=== PATIENT | male | born 1935 | race Caucasian/White ===

== ENCOUNTER 2019-03-04 16:09 | Emergency (ER) | payer MEDICARE, OTHER | END 2019-03-04 16:54 | disposition home or self-care (01) | LOC: ER FS 16:09 ==

== ENCOUNTER 2019-08-19 19:28 | Emergency (ER) | payer MEDICARE, OTHER ==
[~2019-08-19] VITALS: Ht 180.3 cm; Wt 101.4 kg
[~2019-08-19 19:28] MED LIST: ASCO500C14; CHOL10003; CYCL10TA9 PO; DICL75TA2; FOLI1TAB7; LISI1TAB10
[2019-08-19] MEDS ORDERED: predniSONE 20 MG TAB PO ONE (20:00)
[2019-08-19] MEDS ORDERED: RT-ALBUTEROL/IPRATROPIUM 3 ML (DUONEB) VIAL INH ONE (20:00)
--- NOTE | 2019-08-19 20:05 | ED Respiratory ---
General Chief Complaint: Respiratory Problems Stated Complaint: CONGESTION,CHEST TIGHTNESS Source: patient, family Exam Limitations: no limitations History of Present Illness Date Seen by Provider: Aug 19, 2019 Time Seen by Provider: 20:01 Initial Comments Patient presents with chest tightness and cough. History of present illness, isrrael alfredo had diagnosis of the flu 5 days ago and was given Tamiflu. Has had a cough and chest congestion which was worse yesterday and then today began have more chest tightness and noisy breathing. Moderate head congestion and postnasal drainage. Denies abdominal pain, nausea or vomiting. Allergies and Home Medications Allergies Coded Allergies: No Known Allergies (Verified Allergy, Unknown, 03/16/06) Home Medications Albuterol Sulfate 2.5 Mg/3 Ml Vial.neb, 2.5 MG INH Q4H PRN for WHEEZING Prescribed by: VAISHALI ROLON on 08/19/192052 Cyclobenzaprine HCl 10 Mg Tablet, 10 MG PO HS Prescribed by: VAISHALI ROLON on 03/04/191642 Prednisone 20 Mg Tab, 40 MG PO DAILY Prescribed by: VAISHALI ROLON on 08/19/192052 Patient Home Medication List Home Medication List Reviewed: Yes Review of Systems Review of Systems Constitutional: see HPI; No chills, No dizziness, No fever; malaise; No we akness Respiratory: cough, phlegm, short of breath, wheezing Cardiovascular: No chest pain, No palpitations, No syncope Gastrointestinal: see HPI Past Nojntvx-Nlkvab-Ldebir Hx Past Med/Social Hx: Reviewed Nursing Past Med/Soc Hx Patient Social History 2nd Hand Smoke Exposure: No Recent Foreign Travel: No Contact w/Someone Who Travel: No Recent Hopitalizations: No Past Medical History Surgeries: Yes (RECTAL FISSURE) Coronary Stent, Gallbladder, Orthopedic Respiratory: No Cardiac: Yes (stent placement ) High Cholesterol, Hypertension Neurological: No Reproductive Disorders: No Genitourinary: No Gastrointestinal: No Musculoskeletal: Yes (compression fracture) Arthritis Endocrine: Yes Diabetes, Non-Insulin dep HEENT: No Cancer: No Psychosocial: No Integumentary: No Blood Disorders: No Physical Exam Vital Signs - First Documented 08/19/19 19:59 Temp 36.5 Pulse 64 Resp 18 B/P (MAP) 158/63 (94) O2 Delivery Room Air O2 Flow Rate 2.00 Capillary Refill : Height: '" Weight: lbs. oz. kg; 30.00 BMI Method: General Appearance: WD/WN, no apparent distress HEENT: normal ENT inspection, TMs normal, pharynx normal Neck: non-tender, supple, normal inspection Respiratory: chest non-tender, no respiratory distress, no accessory muscle use, rhonchi, wheezing Cardiovascular: regular rate, rhythm, no JVD, no murmur Gastrointestinal: soft; No guarding, No rebound, No tenderness Extremities: non-tender, normal inspection, no pedal edema, no calf tenderness Neurologic/Psychiatric: alert, normal mood/affect, oriented x 3 Skin: normal color, warm/dry Progress/Results/Core Measures Suspected Sepsis SIRS Temperature: Pulse: Respiratory Rate: Blood Pressure / Mean: Results/Orders My Orders Orders - VAISHALI ROLON DO Chest Pa/Lat (2 View) (08/19/19 19:59) Albuterol/Ipra Inhalation Soln (Duoneb I (08/19/19 20:00) Svn Small Volume Nebulizer (08/19/19 19:59) Prednisone Tablet (Deltasone Tablet) (08/19/19 20:00) Medications Given in ED Current Medications Medications Dose Ordered Sig/Marilu Route Start Time Stop Time Status Last Admin Dose Admin Albuterol/ Ipratropium 3 ml ONCE ONCE INH 08/19/19 20:00 08/19/19 20:01 DC 08/19/19 20:11 3 ML Prednisone 40 mg ONCE ONCE PO 08/19/19 20:00 08/19/19 20:01 DC 08/19/19 20:11 40 MG Vital Signs/I&O 08/19/19 19:59 Temp 36.5 Pulse 64 Resp 18 B/P (MAP) 158/63 (94) O2 Delivery Room Air O2 Flow Rate 2.00 Capillary Refill : Progress Note : Progress Note Patient felt significant better after DuoNeb treatment. Oxygen saturations 92- 93 percent on room air. Chest tightness resolved. Auscultation, still does have some scattered expiratory rhonchi without rales and no respiratory distress. Patient well-appearing. Discussed treatment for the next several days, daily prednisone burst 40 mg 5 days and albuterol neb every 4 hours as needed. Departure Impression Primary Impression: Influenza Additional Impression: Bronchitis Disposition: HOME, SELF-CARE Condition: Improved Departure-Patient Inst. Decision time for Depature: 20:53 Referrals: [facility]RE[facility] MD (PCP/Family) Primary Care Physician Patient Instructions: Flu, Adult (DC), Acute Bronchitis, Adult (DC) Scripts Prednisone (Prednisone) 20 Mg Tab 40 MG PO DAILY, #10 TAB 0 Refills Prov: VAISHALI ROLON DO 08/19/19 Albuterol Sulfate (Albuterol Sulfate) 2.5 Mg/3 Ml Vial.neb 2.5 MG INH Q4H PRN for WHEEZING, #50 EA 1 Refill Prov: VAISHALI ROLON DO 08/19/19 VAISHALI ROLON DO Aug 19, 2019 20:05
--- NOTE | 2019-08-19 20:16 | Diagnostic Imaging Report ---
INDICATION: Patient was seen in urgent care on Thursday and was diagnosed with flu. Tonight the patient has shortness of breath and is having chest tightness. FINDINGS: Frontal and lateral views of the chest demonstrate lungs to be clear. The heart, mediastinum and pulmonary vascularity are normal. IMPRESSION: Normal chest. Dictated by: Dictated on workstation # [id number]
[2019-08-19] MEDS ORDERED: ALBU2.5V4 INH (20:53)
[2019-08-19] MEDS ORDERED: PRD20T PO (20:53)
[2019-08-19 21:00] VITALS: BP 158/63
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
== END 2019-08-19 21:00 | disposition home or self-care (01) ==
LOC: EDUNIT# 19:28 → ER FS 19:30
DX: J11.1 Influenza due to unidentified influenza virus with other respiratory manifestations (principal); J20.9 Acute bronchitis, unspecified; Z95.5 Presence of coronary angioplasty implant and graft
CPT/HCPCS: 71046

== ENCOUNTER 2019-10-20 16:22 | Emergency (ER) | payer MEDICARE, OTHER ==
[~2019-10-20 16:22] MED LIST changes: +ALBU2.5V4 INH; +PRD20T PO
--- NOTE | 2019-10-20 16:43 | ED EENT ---
History of Present Illness General Chief Complaint: Oral/Throat Problems Stated Complaint: LUMP IN THROAT,UNABLE TO SWALLOW Source: patient Exam Limitations: no limitations History of Present Illness Date Seen by Provider: October 20, 2019 Time Seen by Provider: 16:38 Initial Comments 84-year-old male feels like he has a swelling at that back of his throat. 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 He feels like is just swollen. Reports that he had a some carrots and strength some coffee. That is not down in his esophagus bit more right at the back of his throat at the base of his tongue. Patient feels like it just cannot came on. Patient does report he's been having issues with some seasonal allergies. Patient reports that he clears his throat a lot. He is not having difficulty breathing. He is able to swallow fluids without difficulty just feels like there is a lump there. Allergies and Home Medications Allergies Coded Allergies: No Known Allergies (Verified Allergy, Unknown, 03/16/06) Home Medications Albuterol Sulfate 2.5 Mg/3 Ml Vial.neb, 2.5 MG INH Q4H PRN for WHEEZING Prescribed by: VAISHALI ROLON on 08/19/192052 Cyclobenzaprine HCl 10 Mg Tablet, 10 MG PO HS Prescribed by: VAISHALI ROLON on 03/04/191642 Prednisone 20 Mg Tab, 40 MG PO DAILY Prescribed by: VAISHALI ROLON on 08/19/192052 Patient Home Medication List Home Medication List Reviewed: Yes Review of Systems Review of Systems Constitutional: No chills, No fever Eyes: No Symptoms Reported Ears: Other (chronic ear issues ) Nose: no symptoms reported Mouth: see HPI Throat: see HPI Respiratory: no symptoms reported Cardiovascular: no symptoms reported Gastrointestinal: no symptoms reported Skin: no symptoms reported Neurological: No Symptoms Reported Past Whtgltk-Xrhvut-Tceorn Hx Past Med/Social Hx: Reviewed Nursing Past Med/Soc Hx Patient Social History 2nd Hand Smoke Exposure: No Recent Foreign Travel: No Contact w/Someone Who Travel: No Recent Hopitalizations: No Past Medical History Surgeries: Yes (RECTAL FISSURE) Coronary Stent, Gallbladder, Orthopedic Respiratory: No Cardiac: Yes (stent placement ) High Cholesterol, Hypertension Neurological: No Reproductive Disorders: No Genitourinary: No Gastrointestinal: No Musculoskeletal: Yes (compression fracture) Arthritis Endocrine: Yes Diabetes, Non-Insulin dep HEENT: No Cancer: No Psychosocial: No Integumentary: No Blood Disorders: No Physical Exam Vital Signs Vital Signs - First Documented 10/20/19 16:39 Temp 37.3 Pulse 76 Resp 16 B/P (MAP) 154/83 (106) Pulse Ox 100 Height, Weight, BMI Height: '" Weight: lbs. oz. kg; 31.00 BMI Method: General Appearance: WD/WN Eyes: bilateral eye normal inspection Ears: bilateral ear other (no acute changes ) Nose: normal inspection Mouth/Throat: pharynx normal; No excessive drooling, No foreign body, No pharynx swelling, No pharynx tenderness, No tongue swollen, No tonsillar exudate; other (uvula mild erythema, mild enlargement ) Neck: non-tender, full range of motion Cardiovascular: normal peripheral pulses, regular rate, rhythm Respiratory: chest non-tender, lungs clear, normal breath sounds Gastrointestinal: non tender, soft Neurologic/Psychiatric: gold leaf gilder II-XII nml as tested, no motor/sensory deficits, alert, normal mood/affect, oriented x 3 Skin: normal color, warm/dry Progress/Results/Core Measures Results/Orders Lab Results Laboratory Tests Test 10/20/19 17:12 Range/Units White Blood Count 5.9 4.3-11.0 10^3/uL Red Blood Count 3.82 L 4.35-5.85 10^6/uL Hemoglobin 12.1 L 13.3-17.7 G/DL Hematocrit 35 L 40-54 % Mean Corpuscular Volume 91 80-99 FL Mean Corpuscular Hemoglobin 32 25-34 PG Mean Corpuscular Hemoglobin Concent 35 32-36 G/DL Red Cell Distribution Width 12.7 10.0-14.5 % Platelet Count 131 130-400 10^3/uL Mean Platelet Volume 9.8 7.4-10.4 FL Sodium Level 141 135-145 MMOL/L Potassium Level 4.4 3.6-5.0 MMOL/L Chloride Level 101 98-107 MMOL/L Carbon Dioxide Level 24 21-32 MMOL/L Anion Gap 16 H 5-14 MMOL/L Blood Urea Nitrogen 24 H 7-18 MG/DL Creatinine 1.28 0.60-1.30 MG/DL Estimat Glomerular Filtration Rate 53 BUN/Creatinine Ratio 19 Glucose Level 133 H 70-105 MG/DL Calcium Level 9.6 8.5-10.1 MG/DL Corrected Calcium 9.3 8.5-10.1 MG/DL Total Bilirubin 0.6 0.1-1.0 MG/DL Aspartate Amino Transf (AST/SGOT) 22 5-34 U/L Alanine Aminotransferase (ALT/SGPT) 23 0-55 U/L Alkaline Phosphatase 76 40-136 U/L C-Reactive Protein 0.32 <0.50 MG/DL Total Protein 6.7 6.4-8.2 GM/DL Albumin 4.4 3.2-4.5 GM/DL My Orders Orders - JESSICA JUARES DO Diphenhydramine Injection (Benadryl Inje (10/20/19 16:45) Soft Tissue Neck (10/20/19 16:55) Cbc No Diff (10/20/19 16:55) Comprehensive Metabolic Panel (10/20/19 16:55) Thyroid Stimulating Hormone (10/20/19 16:55) Crp Fs (10/20/19 16:55) Medications Given in ED Current Medications Medications Dose Ordered Sig/Marilu Route Start Time Stop Time Status Last Admin Dose Admin Diphenhydramine HCl 50 mg ONCE ONCE IM 10/20/19 16:45 10/20/19 16:47 DC 10/20/19 16:56 50 MG Vital Signs/I&O 10/20/19 16:39 Temp 37.3 Pulse 76 Resp 16 B/P (MAP) 154/83 (106) Pulse Ox 100 Progress Progress Note : Time: 17:49 Progress Note Patient with no significant findings on imaging or labs. Patient with a globus sensation. I suspect that this is from allergic rhinitis. We will have him trial Flonase 1 week. His symptoms remained I recommend he follow up with his primary care provider for further evaluation and possible CT. Patient is stable will be discharged home Diagnostic Imaging Diagonstic Imaging: Xray Plain Films/CT/US/NM/MRI: facial bones Comments [facility]. [place], [place] NAME: DA MCINTYRE [facility] REC#: [id number] PT STATUS: REG ER : 1935 PHYSICIAN: JESSICA JUARES DO ADMIT DATE: 10/20/19/ER FS Draft Date of Exam:10/20/19 SOFT TISSUE NECK HISTORY: Swelling in throat. Difficulty swallowing for a few hours. Sore throat. COMPARISON: None. FINDINGS: Two views of the soft tissues of the neck are performed. The epiglottis appears normal in size. The airway is patent. Prevertebral soft tissues are unremarkable. No radiopaque foreign body is seen. Multilevel degenerative changes are seen throughout the cervical spine, with interbody osseous fusion. IMPRESSION: 1. The airway is patent. No acute soft tissue abnormality is seen. 2. 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 Referrals: [facility] MD (PCP/Family) Primary Care Physician Patient Instructions: Seasonal Allergies (DC) Add. Discharge Instructions: Use Flonase twice a day as directed on package any snare. Follow-up with your primary care provider in approximately 5-7 days for continuation of care and recheck in today symptoms Return to the ER as needed Emergency department focuses on treating and ruling out life-threatening diseases. Whenever possible, a diagnosis is given. However, most patients are given an impression based on their history, physical exam, and workup during your brief time in the ER. Information about probable diagnosis and other educational material has been provided. Please take the time to read and understand this information. It is very important that you follow up with a physician as discussed during the visit today. Failure to adhere to your follow-up instructions may lead to severe disability, injury, or so please make sure to keep your appointments or obtain one as requested. Please keep in mind the emergency department is not designed to your primary care or "family doctor" and nonurgent issues are best evaluated by an outpatient physician All discharge instructions reviewed with patient and/or family. Voiced understanding. JESSICA JUARES DO October 20, 2019 16:43
[2019-10-20] MEDS ORDERED: diphenhydrAMINE 50 MG/ML INJ (BENADRYL) IM ONE (16:45)
--- NOTE | 2019-10-20 17:18 | Diagnostic Imaging Report ---
HISTORY: Swelling in throat. Difficulty swallowing for a few hours. Sore throat. COMPARISON: None. FINDINGS: Two views of the soft tissues of the neck are performed. The epiglottis appears normal in size. The airway is patent. Prevertebral soft tissues are unremarkable. No radiopaque foreign body is seen. Multilevel degenerative changes are seen throughout the cervical spine, with interbody osseous fusion. IMPRESSION: 1. The airway is patent. No acute soft tissue abnormality is seen. 2. 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 Dictated by: Dictated on workstation # [id number]
[2019-10-20 17:26] LABS: HEMOGLOBIN 12.1 G/DL (13.3-17.7); WHITE BLOOD COUNT 5.9 10^3/uL (4.3-11.0)
[2019-10-20 17:27] LABS: MEAN PLATELET VOLUME 9.8 FL (7.4-10.4); RED CELL DISTRIBUTION WIDTH 12.7 % (10.0-14.5)
[2019-10-20 17:43] LABS: BILIRUBIN,TOTAL 0.6 MG/DL (0.1-1.0); CALCIUM 9.6 MG/DL (8.5-10.1); CREATININE SERUM 1.28 MG/DL (0.60-1.30); POTASSIUM 4.4 MMOL/L (3.6-5.0); TOTAL PROTEIN 6.7 GM/DL (6.4-8.2)
[2019-10-20 17:44] LABS: ALBUMIN 4.4 GM/DL (3.2-4.5)
[2019-10-20 17:59] VITALS: BP 150/80
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
== END 2019-10-20 17:59 | disposition home or self-care (01) ==
LOC: EDUNIT# 16:22 → ER FS 16:24
DX: J30.9 Allergic rhinitis, unspecified (principal); R09.89 Other specified symptoms and signs involving the circulatory and respiratory systems; E11.9 Type 2 diabetes mellitus without complications; Z79.52 Long term (current) use of systemic steroids; Z95.5 Presence of coronary angioplasty implant and graft
CPT/HCPCS: 36415; 70360; 80053; 84443; 85027; 86141; 96372

== ENCOUNTER 2020-06-26 18:46 | Emergency (ER) | payer MEDICARE, OTHER ==
[~2020-06-26] VITALS: Ht 180.3 cm; Wt 100.0 kg
--- NOTE | 2020-06-26 18:56 | ED Fall/Injury ---
General Stated Complaint: FALL,NOSE/MOUTH LAC,HIT HEAD History of Present Illness Date Seen by Provider: Jun 26, 2020 Time Seen by Provider: 18:53 Initial Comments 84-year-old male presents following a fall. Patient stepped back off a truck and there was nothing the stent back to. He fell approximately 3-4 foot. He did hit his face. He has a small laceration inside his lip, swollen bloody nose. Kiet clara on his forehead. He is on a blood thinner. He denies any loss of consciousness. The accident happened about an hour prior to arrival. He denies any other injury or pain. He doesn't have any nausea or vomiting. Allergies and Home Medications Allergies Coded Allergies: No Known Allergies (Verified Allergy, Unknown, 03/16/06) Home Medications Albuterol Sulfate 2.5 Mg/3 Ml Vial.neb, 2.5 MG INH Q4H PRN for WHEEZING Prescribed by: VAISHALI ROLON on 08/19/192052 Cyclobenzaprine HCl 10 Mg Tablet, 10 MG PO HS Prescribed by: VAISHALI ROLON on 03/04/191642 Prednisone 20 Mg Tab, 40 MG PO DAILY Prescribed by: VAISHALI ROLON on 08/19/192052 Patient Home Medication List Home Medication List Reviewed: Yes Review of Systems Review of Systems Constitutional: No chills, No fever Eyes: Denies Blurred Vision Respiratory: No cough, No short of breath Cardiovascular: No chest pain, No palpitations Gastrointestinal: No abdominal pain, No nausea, No vomiting Genitourinary: no symptoms reported Musculoskeletal: no symptoms reported Skin: see HPI Psychiatric/Neurological: No Symptoms Reported Past Azwzyht-Rqtxaj-Fmmwux Hx Past Med/Social Hx: Reviewed Nursing Past Med/Soc Hx Patient Social History 2nd Hand Smoke Exposure: No Recent Hopitalizations: No Past Medical History Surgeries: Yes (RECTAL FISSURE) Coronary Stent, Gallbladder, Orthopedic Respiratory: No Cardiac: Yes (stent placement ) High Cholesterol, Hypertension Neurological: No Reproductive Disorders: No Genitourinary: No Gastrointestinal: No Musculoskeletal: Yes (compression fracture) Arthritis Endocrine: Yes Diabetes, Non-Insulin dep HEENT: No Cancer: No Psychosocial: No Integumentary: No Blood Disorders: No Physical Exam Vital Signs Vital Signs - First Documented 06/26/20 19:03 Temp 36.1 Pulse 70 Resp 16 B/P (MAP) 188/80 (116) Pulse Ox 97 Capillary Refill : Height, Weight, BMI Height: '" Weight: lbs. oz. kg; 31.00 BMI Method: General Appearance: mild distress HEENT: PERRL/EOMI, other (small laceration inside of the left upper lip, small abrasion/laceration nonsuturable over the bridge of the nose, swelling of bilateral nose with blood tinge at the nares) Neck: full range of motion, supple Respiratory: lungs clear, normal breath sounds, no respiratory distress Gastrointestinal: non tender, soft Extremities: normal range of motion, non-tender Neurologic/Psychiatric: alert, normal mood/affect, oriented x 3 Skin: other (abrasion frontal scalp) Progress/Results/Core Measures Results/Orders My Orders Orders - JESSICA JUARES DO Ct Head/Maxillofacial Wo (06/26/20 18:56) Vital Signs/I&O 06/26/20 19:03 Temp 36.1 Pulse 70 Resp 16 B/P (MAP) 188/80 (116) Pulse Ox 97 Progress Progress Note : Time: 19:54 Progress Note [facility], [place] NAME: DA [facility] REC#: [id number] PT STATUS: REG ER : 1935 PHYSICIAN: JESSICA JUARES DO ADMIT DATE: 06/26/20/ER FS Draft Date of Exam:06/26/20 CT HEAD/MAXILLOFACIAL WO PROCEDURE: CT head and maxillofacial without contrast. TECHNIQUE: Multiple contiguous axial images were obtained through the head and facial bones without the use of intravenous contrast. Auto Exposure Controls were utilized during the CT exam to meet ALARA standards for radiation dose reduction. INDICATION: Status post fall, trauma hit head. CORRELATION STUDY: None FINDINGS: CT HEAD: There are generalized atrophic changes with prominence of the ventricles and sulci. There are rather prominent scattered areas of decreased attenuation likely reflecting small vessel ischemic disease. No midline shift or mass effect. No intracranial hemorrhage. Intracranial vascular calcification is present. CT MAXILLOFACIAL: There is asymmetric soft tissue edema over the medial right periorbital region. Bilateral nasal bone deformities favor probable more remote injury. Minimal leftward nasal septal deviation. Orbital stephenson including floor are maintained. Mandible appearing intact. Zygomatic arch and pterygoid plates preserved. Trace mucosal thickening along the floor of the maxillary sinuses. Bilateral lens replacements. IMPRESSION: CT HEAD: 1. Negative for acute traumatic intracranial abnormality. CT MAXILLOFACIAL: 1. Negative for acute displaced maxillofacial fracture. 2. Right periorbital soft tissue swelling. Departure Impression Primary Impression: Laceration of lip without complication Qualified Codes: S01.511A - Laceration without foreign body of lip, initial encounter Additional Impressions: Fall Qualified Codes: W19.XXXA - Unspecified fall, initial encounter Facial contusion Qualified Codes: S00.83XA - Contusion of other part of head, initial encounter Abrasion of face Qualified Codes: S00.81XA - Abrasion of other part of head, initial encounter Disposition: 01 HOME, SELF-CARE Condition: Stable Departure-Patient Inst. Referrals: EVAN STRE[facility] MD (PCP/Family) Primary Care Physician Patient Instructions: Mouth and Dental Injuries in Adults, Taking Care of Cuts and Scrapes, Minor Head Injury Add. Discharge Instructions: Tylenol or ibuprofen as needed Ice to affected area as needed Clean face with warm soapy water you may use a thin layer of Vaseline over your abrasions Follow-up with your primary care provider as needed JESSICA JUARES DO Jun 26, 2020 18:56
--- NOTE | 2020-06-26 19:41 | Diagnostic Imaging Report ---
PROCEDURE: CT head and maxillofacial without contrast. TECHNIQUE: Multiple contiguous axial images were obtained through the head and facial bones without the use of intravenous contrast. Auto Exposure Controls were utilized during the CT exam to meet ALARA standards for radiation dose reduction. INDICATION: Status post fall, trauma hit head. CORRELATION STUDY: None FINDINGS: CT HEAD: There are generalized atrophic changes with prominence of the ventricles and sulci. There are rather prominent scattered areas of decreased attenuation likely reflecting small vessel ischemic disease. No midline shift or mass effect. No intracranial hemorrhage. Intracranial vascular calcification is present. CT MAXILLOFACIAL: There is asymmetric soft tissue edema over the medial right periorbital region. Bilateral nasal bone deformities favor probable more remote injury. Minimal leftward nasal septal deviation. Orbital stephenson including floor are maintained. Mandible appearing intact. Zygomatic arch and pterygoid plates preserved. Trace mucosal thickening along the floor of the maxillary sinuses. Bilateral lens replacements. IMPRESSION: CT HEAD: 1. Negative for acute traumatic intracranial abnormality. CT MAXILLOFACIAL: 1. Negative for acute displaced maxillofacial fracture. 2. Right periorbital soft tissue swelling. Dictated by: Dictated on workstation # [id number]
[2020-06-26 20:00] VITALS: BP 188/80
== END 2020-06-26 20:00 | disposition home or self-care (01) ==
LOC: EDUNIT# 18:46 → ER FS 18:48
DX: S01.511A Laceration without foreign body of lip, initial encounter (principal); I10 Essential (primary) hypertension; Z95.5 Presence of coronary angioplasty implant and graft; Z87.81 Personal history of (healed) traumatic fracture; Z79.52 Long term (current) use of systemic steroids; W17.89XA Other fall from one level to another, initial encounter
CPT/HCPCS: 70450; 70486

== ENCOUNTER 2020-06-28 05:18 | Emergency (ER) | payer MEDICARE, OTHER ==
[~2020-06-28] VITALS: Ht 180.4 cm; Wt 101.2 kg
[2020-06-28 05:29] VITALS: BP 154/67
[2020-06-28] MEDS ORDERED: ACHD5005 PO (05:43)
--- NOTE | 2020-06-28 05:45 | ED Upper Extremity ---
General Chief Complaint: Upper Extremity Stated Complaint: RIGHT WRIST PAIN Nursing Triage Note: pt fell 2 days ago and now has right wrist pain, mild swelling, pt did not take amything for pain Nursing Sepsis Screen: No Definite Risk Source: patient Exam Limitations: no limitations History of Present Illness Date Seen by Provider: Jun 28, 2020 Time Seen by Provider: 05:30 Initial Comments 84 y/o male presents w R wrist pain for a couple days. Seen in this ER 2 days ago after a fall....had a head CT, but did not have c/o wrist pain at that time. This morning w moderate pain w movement and decided to come to the ER. Has not taken any pain medication of ibuprofen, but states he did yesterday w some relief. Allergies and Home Medications Allergies Coded Allergies: No Known Allergies (Verified Allergy, Unknown, 03/16/06) Home Medications Albuterol Sulfate 2.5 Mg/3 Ml Vial.neb, 2.5 MG INH Q4H PRN for WHEEZING Prescribed by: VAISHALI ROLON on 08/19/192052 Cyclobenzaprine HCl 10 Mg Tablet, 10 MG PO HS Prescribed by: VAISHALI ROLON on 03/04/19 164 Hydrocodone/Acetaminophen 1 Each Tablet, 1 EACH PO Q4H Prescribed by: VAISHALI ROLON on 06/28/20 0545 Ibuprofen 800 Mg Tablet, 800 MG PO Q8H PRN for PAIN Prescribed by: VAISHALI ROLON on 06/28/20 0547 Prednisone 20 Mg Tab, 40 MG PO DAILY Prescribed by: VAISHALI ROLON on 08/19/192052 Patient Home Medication List Home Medication List Reviewed: Yes Review of Systems Constitutional: no symptoms reported; No chills, No dizziness, No malaise, No weakness EENTM: no symptoms reported Respiratory: no symptoms reported Cardiovascular: no symptoms reported Gastrointestinal: no symptoms reported Musculoskeletal: see HPI, joint pain (R wrist), joint swelling; No neck pain Skin: No change in color, No lesions, No lumps, No rash Past Denhsiw-Ukqwjo-Cqwqax Hx Past Med/Social Hx: Reviewed Nursing Past Med/Soc Hx Patient Social History Alcohol Use: Denies Use Smoking Status: Never a Smoker 2nd Hand Smoke Exposure: No Recent Infectious Disease Expo: No Recent Hopitalizations: No Past Medical History Surgeries: Yes (RECTAL FISSURE) Coronary Stent, Gallbladder, Orthopedic Respiratory: No Cardiac: Yes (stent placement ) High Cholesterol, Hypertension Neurological: No Reproductive Disorders: No Genitourinary: No Gastrointestinal: No Musculoskeletal: Yes (compression fracture) Arthritis Endocrine: Yes Diabetes, Non-Insulin dep HEENT: No Cancer: No Psychosocial: No Integumentary: No Blood Disorders: No Physical Exam Vital Signs Vital Signs - First Documented 06/28/20 05:29 Temp 36.7 Pulse 82 Resp 16 B/P (MAP) 154/67 (96) Pulse Ox 96 O2 Delivery Room Air Capillary Refill : Less Than 3 Seconds Height, Weight, BMI Height: '" Weight: lbs. oz. kg; 31.00 BMI Method: General Appearance: WD/WN, no apparent distress Elbow/Forearm: normal inspection, non-tender, no evidence of injury, normal ROM, Right Wrist: Yes normal inspection, Yes no evidence of injury, Yes bone tenderness (diffuse- carpal bones and distal wrist), Yes limited ROM (2 to pain), Yes pain, Yes soft tissue tenderness, Yes swelling Hand: normal inspection, non-tender, normal ROM, Right Neurologic/Tendon: normal sensation, normal motor functions, normal tendon functions Skin: normal color, warm/dry Progress/Results/Core Measures Results/Orders My Orders Orders - VAISHALI ROLON DO Wrist 3 View Right (06/28/20 05:23) Vital Signs/I&O 06/28/20 05:29 Temp 36.7 Pulse 82 Resp 16 B/P (MAP) 154/67 (96) Pulse Ox 96 O2 Delivery Room Air Blood Pressure Mean: 96 Departure Impression Primary Impression: Sprain of right wrist Qualified Codes: S63.501A - Unspecified sprain of right wrist, initial encounter Disposition: HOME, SELF-CARE Condition: Stable Departure-Patient Inst. Decision time for Depature: 05:45 Referrals: [facility] STRE[facility] MD (PCP/Family) Primary Care Physician Patient Instructions: Wrist Sprain ED Add. Discharge Instructions: Follow up with Dr Street in 1 week to recheck and maybe re-xray your right wrist if it is still hurting. All discharge instructions reviewed with patient and/or family. Voiced understanding. Scripts Ibuprofen (Ibuprofen) 800 Mg Tablet 800 MG PO Q8H PRN for PAIN, #30 TAB 0 Refills Prov: VAISHALI ROLON DO 06/28/20 Hydrocodone/Acetaminophen (Hydrocodone-Acetamin 5-325 mg) 1 Each Tablet 1 EACH PO Q4H for Abdominal Pain, #10 TAB Prov: VAISHALI ROLON DO 06/28/20 VAISHALI ROLON DO Jun 28, 2020 05:45
[2020-06-28] MEDS ORDERED: IBUP-1780 PO (05:47)
--- NOTE | 2020-06-28 08:14 | Diagnostic Imaging Report ---
EXAMINATION: Right wrist radiographs, 3 views. COMPARISON: None. HISTORY: 84-year-old male, fall. Right wrist pain. FINDINGS: There is chondrocalcinosis. There are vascular calcifications. There is mild arthritis at the triscaphe articulation. 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 There are subchondral cysts in the distal radius and the proximal scaphoid. There is no identified acute fracture. There is no identified abnormal bone alignment. There is no radiopaque foreign body. IMPRESSION: 1. No identified acute bony abnormality of the right wrist. 2. Degenerative changes as described above. Dictated by: Dictated on workstation # [id number]
== END 2020-06-28 05:48 | disposition home or self-care (01) ==
LOC: EDUNIT# 05:18 → ER FS 05:21
DX: S63.511A Sprain of carpal joint of right wrist, initial encounter (principal); Z95.5 Presence of coronary angioplasty implant and graft; Z79.52 Long term (current) use of systemic steroids; W19.XXXA Unspecified fall, initial encounter
CPT/HCPCS: 73110

== ENCOUNTER → 2020-07-24 | Outpatient (CLI) | payer MEDICARE, OTHER ==
[~2020-07-24] MED LIST changes: +ACHD5005 PO; +IBUP-1780 PO
[2020-07-24 13:50] LABS: BASOPHILS % (AUTO) 1 % (0-10); EOSINOPHILS % (AUTO) 9 % (0-10); HEMATOCRIT 31 % (40-54); HEMOGLOBIN 10.4 G/DL (13.3-17.7); LYMPHOCYTES % (AUTO) 11 % (12-44); MEAN CORPUSCULAR HEMOGLOBIN 31 PG (25-34); MEAN CORPUSCULAR HGB CONC 33 G/DL (32-36); MEAN CORPUSCULAR VOLUME 95 FL (80-99); MEAN PLATELET VOLUME 10.3 FL (7.4-10.4); MONOCYTES % (AUTO) 9 % (0-12); NEUTROPHILS % (AUTO) 70 % (42-75); PLATELET COUNT 153 10^3/uL (130-400); WHITE BLOOD COUNT 7.1 10^3/uL (4.3-11.0)
[2020-07-24 13:51] LABS: EOSINOPHILS # (AUTO) 0.7 10^3/uL (0.0-0.3); LYMPHOCYTES # (AUTO) 0.8 X 10^3 (1.0-4.0); MONOCYTES # (AUTO) 0.7 X 10^3 (0.0-1.0)
== END ==
LOC: IHC 12:57
PROVIDERS: ATTEND Family Medicine
DX: I12.9 Hypertensive chronic kidney disease with stage 1 through stage 4 chronic kidney disease, or unspecified chronic kidney disease (principal); N18.30 Chronic kidney disease, stage 3 unspecified; D63.1 Anemia in chronic kidney disease; Z79.2 Long term (current) use of antibiotics
CPT/HCPCS: 85025

== ENCOUNTER → 2020-07-25 | Outpatient (CLI) | payer MEDICARE, OTHER ==
[2020-07-25 16:23] LABS: POTASSIUM 4.4 MMOL/L (3.6-5.0)
[2020-07-25 16:24] LABS: ALBUMIN 3.7 GM/DL (3.2-4.5); BILIRUBIN,TOTAL 0.5 MG/DL (0.1-1.0); CALCIUM 9.4 MG/DL (8.5-10.1); CREATININE SERUM 1.31 MG/DL (0.60-1.30); TOTAL PROTEIN 6.6 GM/DL (6.4-8.2)
== END ==
LOC: LAB FS 15:18
PROVIDERS: ATTEND Family Medicine
DX: E11.22 Type 2 diabetes mellitus with diabetic chronic kidney disease (principal); I12.9 Hypertensive chronic kidney disease with stage 1 through stage 4 chronic kidney disease, or unspecified chronic kidney disease; N18.30 Chronic kidney disease, stage 3 unspecified
CPT/HCPCS: 36415; 80053

== ENCOUNTER → 2020-07-31 | Outpatient (CLI) | payer MEDICARE, OTHER ==
[2020-07-31 15:20] LABS: BASOPHILS % (AUTO) 1 % (0-10); EOSINOPHILS % (AUTO) 5 % (0-10); HEMATOCRIT 30 % (40-54); LYMPHOCYTES % (AUTO) 13 % (12-44); MEAN CORPUSCULAR HEMOGLOBIN 31 PG (25-34); MEAN CORPUSCULAR HGB CONC 34 G/DL (32-36); MEAN CORPUSCULAR VOLUME 93 FL (80-99); MEAN PLATELET VOLUME 9.4 FL (7.4-10.4); MONOCYTES % (AUTO) 10 % (0-12); NEUTROPHILS % (AUTO) 71 % (42-75); PLATELET COUNT 183 10^3/uL (130-400); WHITE BLOOD COUNT 5.6 10^3/uL (4.3-11.0)
[2020-07-31 15:21] LABS: BASOPHILS # (AUTO) 0.1 10^3/uL (0.0-0.1); EOSINOPHILS # (AUTO) 0.3 10^3/uL (0.0-0.3); LYMPHOCYTES # (AUTO) 0.7 X 10^3 (1.0-4.0); MONOCYTES # (AUTO) 0.5 X 10^3 (0.0-1.0)
[2020-07-31 15:29] LABS: ALANINE AMINOTRANSFERASE 15 U/L (0-55); ALBUMIN 3.6 GM/DL (3.2-4.5); ALKALINE PHOSPHATASE 91 U/L (40-136); BILIRUBIN,TOTAL 0.3 MG/DL (0.1-1.0); BUN/CREATININE RATIO 18; CARBON DIOXIDE 27 MMOL/L (21-32); CHLORIDE 104 MMOL/L (98-107); CREATININE SERUM 1.14 MG/DL (0.60-1.30); GFR ESTIMATED > 60; GLUCOSE 84 MG/DL (70-105); POTASSIUM 4.4 MMOL/L (3.6-5.0); SODIUM 140 MMOL/L (135-145); TOTAL PROTEIN 6.3 GM/DL (6.4-8.2)
[2020-07-31 22:21] LABS: CREATINE KINASE 40 U/L (30-200)
== END ==
LOC: IHC 14:39
PROVIDERS: ATTEND Internal Medicine Infectious Disease
DX: M00.9 Pyogenic arthritis, unspecified (principal); Z79.2 Long term (current) use of antibiotics
CPT/HCPCS: 80053; 82550; 85025

== ENCOUNTER → 2020-08-13 | Outpatient (CLI) | payer MEDICARE, OTHER ==
[2020-08-13 14:39] LABS: BASOPHILS % (AUTO) 1 % (0-10); EOSINOPHILS % (AUTO) 5 % (0-10); HEMATOCRIT 30 % (40-54); LYMPHOCYTES # (AUTO) 0.8 X 10^3 (1.0-4.0); LYMPHOCYTES % (AUTO) 15 % (12-44); MEAN CORPUSCULAR HEMOGLOBIN 30 PG (25-34); MEAN CORPUSCULAR HGB CONC 33 G/DL (32-36); MEAN CORPUSCULAR VOLUME 92 FL (80-99); MEAN PLATELET VOLUME 9.1 FL (7.4-10.4); MONOCYTES # (AUTO) 0.5 X 10^3 (0.0-1.0); MONOCYTES % (AUTO) 9 % (0-12); NEUTROPHILS # (AUTO) 3.6 X 10^3 (1.8-7.8); NEUTROPHILS % (AUTO) 70 % (42-75); PLATELET COUNT 199 10^3/uL (130-400); WHITE BLOOD COUNT 5.1 10^3/uL (4.3-11.0)
[2020-08-13 14:40] LABS: EOSINOPHILS # (AUTO) 0.3 10^3/uL (0.0-0.3)
[2020-08-13 14:50] LABS: CARBON DIOXIDE 26 MMOL/L (21-32); CHLORIDE 106 MMOL/L (98-107); POTASSIUM 4.6 MMOL/L (3.6-5.0); SODIUM 144 MMOL/L (135-145)
[2020-08-13 14:51] LABS: ALANINE AMINOTRANSFERASE 15 U/L (0-55); ALBUMIN 3.6 GM/DL (3.2-4.5); ALKALINE PHOSPHATASE 84 U/L (40-136); BILIRUBIN,TOTAL 0.3 MG/DL (0.1-1.0); BUN/CREATININE RATIO 18; CREATININE SERUM 1.08 MG/DL (0.60-1.30); GFR ESTIMATED > 60; GLUCOSE 127 MG/DL (70-105); TOTAL PROTEIN 6.6 GM/DL (6.4-8.2)
[2020-08-14 15:12] LABS: CREATINE KINASE 70 U/L (30-200)
== END ==
LOC: LAB FS 13:53
PROVIDERS: ATTEND Internal Medicine Infectious Disease
DX: Z45.2 Encounter for adjustment and management of vascular access device (principal); M00.9 Pyogenic arthritis, unspecified; Z79.2 Long term (current) use of antibiotics
CPT/HCPCS: 36415; 80053; 82550; 85025

== ENCOUNTER → 2020-08-15 | Outpatient (CLI) | payer MEDICARE, OTHER | LOC: LAB FS 11:07 | PROVIDERS: ATTEND Family Medicine | DX: Z79.2 Long term (current) use of antibiotics (principal) | CPT/HCPCS: 87040 ==

== ENCOUNTER → 2021-08-05 | Outpatient (CLI) | payer MEDICARE, OTHER ==
[~2021-08-05] MED LIST changes: +CYCL10TA25 PO; -CYCL10TA9 PO
--- NOTE | 2021-08-05 13:39 | Diagnostic Imaging Report ---
PROCEDURE: MR imaging cervical spine without contrast. TECHNIQUE: Multiplanar, multisequence MR imaging of the cervical spine was performed without contrast. INDICATION: Neck pain. Cervical spinal stenosis. COMPARISON: Neck soft tissue radiographs 10/20/2019. FINDINGS: Examination is mildly limited by motion. Normal alignment. Vertebral body heights are preserved. There is solid osseous fusion of C4 through C6. Bone marrow signal is otherwise unremarkable. No abnormal signal in the cervical spinal cord. Indeterminate T2 hyperintense mass posterior to the right distal common carotid artery measuring 1.1 x 0.7 x 3.7 cm. C2-C3: Annular disc bulging and ligamentous hypertrophy result in mild spinal canal and bilateral neuroforaminal narrowing. C3-C4: Broad-based disc bulge results in moderate spinal canal stenosis. Moderate bilateral neuroforaminal narrowing. C4-C5: No spinal canal or neuroforaminal narrowing. C5-C6: Osteophytic ridging results in mild left neuroforaminal narrowing. No spinal canal narrowing. C6-C7: Disc/osteophyte complex results in moderate left and mild right neuroforaminal narrowing. Mild spinal canal narrowing. C7-T1: Annular disc bulging results in mild spinal canal and bilateral lateral recess narrowing. IMPRESSION: 1. 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 2. 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 There is also moderate bilateral neuroforaminal narrowing at this level. 3. No abnormal signal in the cervical spinal cord. 4. Indeterminate T2 hyperintense mass posterior to the distal right common carotid artery measures up to 3.7 cm. This is poorly characterized on this nondedicated exam. Recommend correlation with history and clinical findings. This could be better evaluated with a contrast-enhanced CT of the neck. Dictated by: Dictated on workstation # [id number]
== END ==
LOC: RAD 10:15
PROVIDERS: ATTEND Family Medicine
DX: M48.02 Spinal stenosis, cervical region (principal); M47.812 Spondylosis without myelopathy or radiculopathy, cervical region; M89.8X8 Other specified disorders of bone, other site; Z98.1 Arthrodesis status
CPT/HCPCS: 72141

== ENCOUNTER → 2021-08-08 | Outpatient (CLI) | payer MEDICARE, OTHER ==
[~2021-08-08] MED LIST changes: +CATHETER FLUSH 10 ML SYR IV PRN; +HOLD METFORMIN - RECEIVED CONTRAST 20 ML VIAL IV SCH; +IOHEXOL 350 MG/ML 150 ML (OMNIPAQUE 350) VIAL IV ONE; +NS 100 ML (IVPB) BAG IV ONE
--- NOTE | 2021-08-08 09:33 | Diagnostic Imaging Report ---
PROCEDURE: CT neck soft tissue with contrast. TECHNIQUE: Multiple contiguous axial images were obtained through the neck after the administration of contrast. Auto Exposure Controls were utilized during the CT exam to meet ALARA standards for radiation dose reduction. INDICATION: Followup mass. Mass adjacent to the right common carotid artery. COMPARISON: 08/05/2021. FINDINGS: The T2 hyperintense lesion adjacent to the right common carotid artery seen on the prior exam corresponds with a eccentric thyroid nodule measuring 1.7 x 1.2 cm. This demonstrates heterogeneous attenuation. Additional smaller nodules are seen in the thyroid. The posterior nasopharynx and oropharynx demonstrate appropriate symmetry. There is no displacement of the parapharyngeal fat planes. There is no abnormal process evident within the prevertebral or retropharyngeal space. There is no evidence of abnormal thickening of the epiglottis or aryepiglottic folds. The vocal folds appear symmetric. The parotid and submandibular gland are unremarkable. No pathologically enlarged cervical lymph nodes are evident. No focal inflammatory changes are demonstrated. No soft tissue mass or fluid collection demonstrated. The vascular structures the neck demonstrate no evidence of high-grade stenosis on this nondedicated exam. The visualized lung apices are clear. The visualized intracranial contents demonstrate no evidence of pathologic intracranial enhancement or intracranial mass effect. Visualized orbital contents are unremarkable. Mucosal thickening is seen in the right maxillary sinus. The mastoids and middle ears are clear. No acute fracture seen in the cervical spine. There is osseous fusion across the C4-C6 vertebral bodies. IMPRESSION: 1. Eccentric thyroid nodule corresponding to findings seen on the prior MRI. Recommend further evaluation with TSH levels and thyroid ultrasound and if indicated thyroid FNA. 2. Appropriate symmetry of the aerodigestive tract. 3. No evidence of pathologic adenopathy. Dictated by: Dictated on workstation # [id number]
== END ==
LOC: RAD FS 08:27
PROVIDERS: ATTEND Family Medicine
DX: E04.1 Nontoxic single thyroid nodule (principal)
CPT/HCPCS: 70491; Q9967

== ENCOUNTER 2022-06-06 04:01 | Emergency (ER) | payer MEDICARE, OTHER ==
[~2022-06-06] VITALS: Ht 180.3 cm; Wt 97.9 kg
[~2022-06-06 04:01] MED LIST changes: -CATHETER FLUSH 10 ML SYR IV PRN; -HOLD METFORMIN - RECEIVED CONTRAST 20 ML VIAL IV SCH; -IOHEXOL 350 MG/ML 150 ML (OMNIPAQUE 350) VIAL IV ONE; -NS 100 ML (IVPB) BAG IV ONE
--- NOTE | 2022-06-06 04:30 | ED GI ---
General Chief Complaint: Abdominal/GI Problems Stated Complaint: DIARRHEA,FEVER Source of Information: Patient Exam Limitations: No Limitations History of Present Illness Date Seen by Provider: Jun 06, 2022 Time Seen by Provider: 04:30 Initial Comments Patient is an 86-year-old male who lives alone, comes to the emergency department with his daughter chief complaint of diarrhea since last Thursday, 5 days. Patient cannot recall any recent antibiotic usage. No recent travel. No sick contacts. He states he has had more diarrhea than he can count. Every time he eats or drinks anything it runs right through him. He did have 1 episode of blood in his stool this week. He did see his primary care provider on Thursday and was given some nausea medication. He denies any nausea currently. He has had some zasf-cks-[id number] Imodium however primary care physician recommended he not take any secondary to possible bacterial infection. He denies any significant abdominal cramping or pain. He has had prior cholecystectomy. Remote colonoscopy. He has had subjective fever. Denies chest pain, shortness of breath. He does feel a little lightheaded and dizzy when he gets up and moves around. Normal urination. No rashes, joint pain or swelling. All other review of systems reviewed and negative except as stated. Timing/Duration: 4-5 Days Severity/Quality: Severe Associated Symptoms: Weakness, Other (diarrhea) Allergies and Home Medications Allergies Coded Allergies: NKANo Known Allergies (Verified Allergy, Unknown, 03/16/06) Patient Home Medication List Home Medication List Reviewed: Yes Albuterol Sulfate (Albuterol Sulfate) 2.5 Mg/3 Ml Vial.neb, 2.5 MG INH Q4H PRN for WHEEZING Prescribed by: VAISHALI ROLON on 08/19/192052 Ascorbic Acid (Vitamin C) 500 Mg Capsule.sa, (Reported) Entered as Reported by: TALIA PACHECO on 09/20/09921 Cholecalciferol (Vitamin D) 1,000 Unit Tablet, (Reported) Entered as Reported by: TALIA PACHECO on 09/20/09921 Cyclobenzaprine HCl (Cyclobenzaprine HCl) 10 Mg Tablet, 10 MG PO HS Prescribed by: VAISHALI ROLON on 03/04/19 164 Diclofenac Sodium (Diclofenac Sodium) 75 Mg Tablet., (Reported) Entered as Reported by: TALIA PACHECO on 09/20/09921 Folic Acid/Multivits-Min/Lut (Centrum Silver Chewable Tablet) 1 Each Tab.chew, (Reported) Entered as Reported by: TALIA PACHECO on 09/20/09921 Hydrocodone/Acetaminophen (Hydrocodone-Acetamin 5-325 mg) 1 Each Tablet, 1 EACH PO Q4H Prescribed by: VAISHALI ROLON on 06/28/20 0545 Ibuprofen (Ibuprofen) 800 Mg Tablet, 800 MG PO Q8H PRN for PAIN Prescribed by: VAISHALI ROLON on 06/28/20 0547 Lisinopril/Hydrochlorothiazide (Prinzide 20-25 Mg Tablet) 1 Each Tablet, (Reported) Entered as Reported by: TALIA PACHECO on 09/20/09920 Prednisone (Prednisone) 20 Mg Tab, 40 MG PO DAILY Prescribed by: VAISHALI ROLON on 08/19/192052 Review of Systems Review of Systems Constitutional: see HPI, fever (subjective) EENTM: No Symptoms Reported Respiratory: No Symptoms Reported Cardiovascular: No Symptoms Reported Gastrointestinal: Diarrhea Genitourinary: No Symptoms Reported Musculoskeletal: no symptoms reported Skin: no symptoms reported Psychiatric/Neurological: No Symptoms Reported All Other Systems Reviewed Negative Unless Noted: Yes Past Gggivab-Wcxvls-Adpptg Hx Past Medical History Surgeries: Yes (RECTAL FISSURE) Coronary Stent, Gallbladder, Orthopedic Respiratory: No Cardiac: Yes (stent placement ) High Cholesterol, Hypertension Neurological: No Reproductive Disorders: No Genitourinary: No Gastrointestinal: No Musculoskeletal: Yes (compression fracture) Arthritis Endocrine: Yes Diabetes, Non-Insulin dep HEENT: No Cancer: No Psychosocial: No Integumentary: No Blood Disorders: No Physical Exam Vital Signs Vital Signs - First Documented 06/06/22 04:19 Temp 36.4 Pulse 83 Resp 20 B/P (MAP) 131/63 (85) O2 Delivery Room Air Capillary Refill : Height/Weight/BMI Height: '" Weight: lbs. oz. kg; 31.00 BMI Method: General Appearance: WD/WN, no apparent distress HEENT: PERRL/EOMI Respiratory: lungs clear, normal breath sounds, no respiratory distress, no accessory muscle use Cardiovascular: normal peripheral pulses, regular rate, rhythm, no murmur Peripheral Pulses: 2+ Radial Pulses (R), 2+ Radial Pulses (L) Gastrointestinal: normal bowel sounds, non tender, soft; No distended, No guarding, No rebound, No tenderness Extremities: normal range of motion, non-tender, normal inspection, no pedal edema Neurologic/Psychiatric: alert, normal mood/affect, oriented x 3 Skin: normal color, warm/dry Progress/Results/Core Measures Results/Orders Lab Results Laboratory Tests Test 06/06/22 04:25 06/06/22 04:45 Range/Units White Blood Count 3.0 L 4.3-11.0 10^3/uL Red Blood Count 3.21 L 4.30-5.52 10^6/uL Hemoglobin 10.1 L 13.3-17.7 g/dL Hematocrit 29 L 40-54 % Mean Corpuscular Volume 89 80-99 fL Mean Corpuscular Hemoglobin 32 25-34 pg Mean Corpuscular Hemoglobin Concent 35 32-36 g/dL Red Cell Distribution Width 12.4 10.0-14.5 % Platelet Count 118 L 130-400 10^3/uL Mean Platelet Volume 10.0 9.0-12.2 fL Immature Granulocyte % (Auto) 0 % Neutrophils (%) (Auto) 59 42-75 % Lymphocytes (%) (Auto) 13 12-44 % Monocytes (%) (Auto) 23 H 0-12 % Eosinophils (%) (Auto) 4 0-10 % Basophils (%) (Auto) 1 0-10 % Neutrophils # (Auto) 1.8 1.8-7.8 10^3/uL Lymphocytes # (Auto) 0.4 L 1.0-4.0 10^3/uL Monocytes # (Auto) 0.7 0.0-1.0 10^3/uL Eosinophils # (Auto) 0.1 0.0-0.3 10^3/uL Basophils # (Auto) 0.0 0.0-0.1 10^3/uL Immature Granulocyte # (Auto) 0.0 0.0-0.1 10^3/uL Neutrophils % (Manual) 17 % Lymphocytes % (Manual) 15 % Monocytes % (Manual) 16 % Eosinophils % (Manual) 3 % Band Neutrophils 49 % Clumped Platelets NO CLUMPS OBSERVED Percent Immature Platelet Fraction 2.8 0.0-7.6 % Blood Morphology Comment NORMAL Sodium Level 133 L 135-145 MMOL/L Potassium Level 3.6 3.6-5.0 MMOL/L Chloride Level 100 98-107 MMOL/L Carbon Dioxide Level 21 21-32 MMOL/L Anion Gap 12 5-14 MMOL/L Blood Urea Nitrogen 41 H 7-18 MG/DL Creatinine 1.95 H 0.60-1.30 MG/DL Estimat Glomerular Filtration Rate 32 BUN/Creatinine Ratio 21 Glucose Level 186 H 70-105 MG/DL Calcium Level 8.5 8.5-10.1 MG/DL Corrected Calcium 8.9 8.5-10.1 MG/DL Total Bilirubin 0.8 0.1-1.0 MG/DL Aspartate Amino Transf (AST/SGOT) 16 5-34 U/L Alanine Aminotransferase (ALT/SGPT) 20 0-55 U/L Alkaline Phosphatase 48 40-136 U/L Total Protein 5.8 L 6.4-8.2 GM/DL Albumin 3.5 3.2-4.5 GM/DL Stool Occult Blood Immunoassay POSITIVE H NEGATIVE My Orders Orders - SHANNAN DIALLO MD Ed Iv/Invasive Line Start (06/06/22 04:29) Cbc With Automated Diff (06/06/22 04:29) Comprehensive Metabolic Panel (06/06/22 04:29) Occult Blood Stool (06/06/22 04:29) Stool Culture (06/06/22 04:29) C Difficile Ag + Toxin A/B. (06/06/22 04:29) Isolation Central Supply Req (06/06/22 04:29) Ns Iv 500 Ml (Sodium Chloride 0.9%) (06/06/22 05:10) Manual Differential (06/06/22 04:25) Ns Iv 1000 Ml (Sodium Chloride 0.9%) (06/06/22 05:11) Vancomycin Oral Capsule (Vancomycin Oral (06/06/22 05:25) Vital Signs/I&O 06/06/22 04:19 Temp 36.4 Pulse 83 Resp 20 B/P (MAP) 131/63 (85) O2 Delivery Room Air Departure Impression Primary Impression: C. difficile colitis Disposition: HOME, SELF-CARE Condition: Stable Departure-Patient Inst. Decision time for Depature: 05:28 Referrals: [facility] MD (PCP/Family) Primary Care Physician Patient Instructions: Clostridioides difficile (DC) Add. Discharge Instructions: Take the vancomycin antibiotic 125mg - 4 times a day for 10 days. Do not take imodium or medications to stop the diarrhea. Drink gatorades, propel zabala (with electrolytes) to stay well hydrated. Ask at your pharmacy for a refrigerated PROBIOTIC. They keep them behind the pharmacy counter - you have to ask for them. They do not require a prescription. Please call your primary care doctor today for a follow up appointment at the beginning of next week. Return to the Emergency Department for any new, concerning or emergent complaints. Scripts Vancomycin HCl (Vancomycin HCl) 125 Mg Capsule 125 MG PO QID, #40 CAP Prov: SHANNAN DIALLO MD 06/06/22 Copy Copies To 1: ALLYSON ZAIDI KATHRYN M MD Jun 06, 2022 04:30
[2022-06-06 04:40] LABS: HEMATOCRIT 29 % (40-54); HEMOGLOBIN 10.1 g/dL (13.3-17.7); MEAN CORPUSCULAR HGB CONC 35 g/dL (32-36)
[2022-06-06 04:42] LABS: BASOPHILS % (AUTO) 1 % (0-10); EOSINOPHILS # (AUTO) 0.1 10^3/uL (0.0-0.3); EOSINOPHILS % (AUTO) 4 % (0-10); LYMPHOCYTES # (AUTO) 0.4 10^3/uL (1.0-4.0); LYMPHOCYTES % (AUTO) 13 % (12-44); MEAN CORPUSCULAR HEMOGLOBIN 32 pg (25-34); MEAN CORPUSCULAR VOLUME 89 fL (80-99); MONOCYTES # (AUTO) 0.7 10^3/uL (0.0-1.0); MONOCYTES % (AUTO) 23 % (0-12); NEUTROPHILS # (AUTO) 1.8 10^3/uL (1.8-7.8); NEUTROPHILS % (AUTO) 59 % (42-75); PLATELET COUNT 118 10^3/uL (130-400)
[2022-06-06 04:52] LABS: ALBUMIN 3.5 GM/DL (3.2-4.5); POTASSIUM 3.6 MMOL/L (3.6-5.0)
[2022-06-06 04:53] LABS: CALCIUM 8.5 MG/DL (8.5-10.1)
[2022-06-06 04:55] LABS: TOTAL PROTEIN 5.8 GM/DL (6.4-8.2)
[2022-06-06 04:56] LABS: BILIRUBIN,TOTAL 0.8 MG/DL (0.1-1.0)
[2022-06-06 04:58] LABS: CREATININE SERUM 1.95 MG/DL (0.60-1.30)
[2022-06-06] MEDS ORDERED: NS IV 500 ML 500 ML IV STA (05:10)
[2022-06-06] MEDS ORDERED: NS IV 1000 ML 1,000 ML IV STA (05:11)
[2022-06-06 05:19] LABS: BAND NEUTROPHILS 49 %; EOSINOPHILS % (MANUAL) 3 %; LYMPHOCYTES % (MANUAL) 15 %; MONOCYTES % (MANUAL) 16 %; NEUTROPHILS % (MANUAL) 17 %; PLATELET CLUMPS NO CLUMPS OBSERVED; RBC MORPH NORMAL
[2022-06-06] MEDS ORDERED: VANCOMYCIN 125 MG CAPSULE PO STA (05:25)
[2022-06-06] MEDS ORDERED: VANC125C5 PO (05:32)
[2022-06-06 06:50] VITALS: BP 131/64
== END 2022-06-06 06:52 | disposition home or self-care (01) ==
LOC: EDUNIT# 04:01 → ER 04:05
DX: A04.72 Enterocolitis due to Clostridium difficile, not specified as recurrent (principal); Z28.310 Unvaccinated for COVID-19
CPT/HCPCS: 36415; 80053; 82274; 85007; 85027; 87015; 87045; 87046; 87077; 87324; 87449; 87899

== ENCOUNTER → 2023-05-13 | Outpatient (CLI) | payer MEDICARE, OTHER ==
[~2023-05-13] MED LIST changes: +VANC125C5 PO
--- NOTE | 2023-05-13 11:53 | Diagnostic Imaging Report ---
PROCEDURE: MRI lumbar spine. TECHNIQUE: Multiplanar, multisequence MRI of the lumbar spine was performed without contrast. INDICATION: Low back pain and bilateral hip pain with prior back surgery. Comparison is made to plain film study of 03/04/2019. FINDINGS: There is mild straightening of normal lumbar lordosis. Lumbar alignment is unremarkable. There has been augmentation of L3 vertebral body with kyphoplasty. There is near-complete loss of L4-L5 disc space with diffuse endplate spurring. Diffuse disc bulging at all levels results in moderate bilateral neural foraminal stenoses with moderate central spinal stenosis at L1-L2 and L2-L3. There is severe spinal stenosis at the L3-L4 level. There is no marrow signal abnormality to indicate an acute fracture. There is compression deformity involving the superior endplate of T12. This was not evaluated on the prior plain film study. Conus medullaris is unremarkable at L1. IMPRESSION: Vvsgpswd-hw-sbgwsf spinal stenosis related to disc bulging, ligament flavum hypertrophy, and degenerative facet arthropathy at L1-L2, L2-L3, and L3-L4. Otherwise, there are moderate bilateral neural foraminal stenoses throughout the lumbar spine with severe neural foraminal stenosis bilaterally at L3-L4. Compression deformity involving the superior endplate of T12 is likely chronic without other evidence of acute abnormality. Dictated by: Dictated on workstation # [id number]
--- NOTE | 2023-05-13 13:05 | Diagnostic Imaging Report ---
HISTORY: Left shoulder pain. COMPARISON: None. TECHNIQUE: Multiplanar and multisequence noncontrast MRI examination of the left shoulder. FINDINGS: No acute fracture is seen in the left shoulder. 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 There is a moderate left shoulder joint effusion. The supraspinatus tendon demonstrates high-grade partial tearing at the bursal surface, which is large in size. The infraspinatus tendon has small low-grade partial-thickness tears with medial intrasubstance extension. The teres minor tendon is intact. The subscapularis tendon demonstrates fraying at the undersurface and a small low-grade partial-thickness tear at the insertion. There is mild atrophy of the supraspinatus muscle. The long head of the biceps tendon appears completely torn. The glenoid labrum demonstrates extensive degenerative tearing throughout. No large paralabral cyst is seen. The acromion has a curved undersurface. The coracoclavicular and coracoacromial ligaments are intact. There is severe degenerative change in the acromioclavicular joint with mass effect on the underlying supraspinatus, as well as inferior spurring. IMPRESSION: 1. Advanced degenerative changes in the left glenohumeral and acromioclavicular joints. 2. Large high-grade partial-thickness tear of the supraspinatus tendon with additional low-grade partial-thickness tearing in the left rotator cuff. There is mild atrophy of the supraspinatus muscle. 3. Complete tear of the long head of the biceps tendon proximally. 4. Moderate right shoulder joint effusion. Dictated by: Dictated on workstation # [id number]
== END ==
LOC: RAD 09:41
PROVIDERS: ATTEND Family Medicine
DX: M51.36 Other intervertebral disc degeneration, lumbar region (principal); M47.816 Spondylosis without myelopathy or radiculopathy, lumbar region; M48.061 Spinal stenosis, lumbar region without neurogenic claudication; M19.012 Primary osteoarthritis, left shoulder; M75.112 Incomplete rotator cuff tear or rupture of left shoulder, not specified as traumatic; S46.112A Strain of muscle, fascia and tendon of long head of biceps, left arm, initial encounter; X58.XXXA Exposure to other specified factors, initial encounter
CPT/HCPCS: 72148; 73221